=== PATIENT | female | born 1950 | race Caucasian/White ===

== ENCOUNTER 2017-04-01 10:09 | Outpatient (CLI) | payer MEDICARE, OTHER | END 2017-04-01 10:10 | disposition home or self-care (01) | LOC: BICMAMMO 10:09 | PROVIDERS: ATTEND Internal Medicine | DX: Z12.31 Encounter for screening mammogram for malignant neoplasm of breast (principal) | CPT/HCPCS: 77063; 77067 ==

== ENCOUNTER 2018-04-07 10:57 | Outpatient (CLI) | payer MEDICARE, OTHER | END 2018-04-07 10:58 | disposition home or self-care (01) | LOC: BICMAMMO 10:57 | PROVIDERS: ATTEND Internal Medicine | DX: Z12.31 Encounter for screening mammogram for malignant neoplasm of breast (principal) | CPT/HCPCS: 77063; 77067 ==

== ENCOUNTER 2019-04-08 11:33 | Outpatient (CLI) | payer MEDICARE, OTHER ==
--- NOTE | 2019-04-08 12:51 | MMO ---
Bilateral MAMMO Bilat Screen [facility]. CLINICAL HISTORY: Patient is 69 years old and is seen for screening. The patient has no family history of breast cancer. The patient has no personal history of cancer. The patient has a history of bilateral Breast reduction in 1997 - benign and bilateral Cyst Aspiration in 1995 - benign. VIEWS: The views performed were: bilateral craniocaudal with tomosynthesis and bilateral mediolateral oblique with tomosynthesis. FILMS COMPARED: The present examination has been compared to prior imaging studies performed at [facility] on 02/24/2015, 03/07/2016, 04/01/2017 and 04/07/2018. This study has been interpreted with the assistance of computer-aided detection. MAMMOGRAM FINDINGS: There are scattered fibroglandular densities. Finding 1: There are stable benign appearing calcifications seen in both breasts. Nodularity is stable. Finding 2: There is a biopsy clip seen in the right breast. There are no suspicious masses, suspicious calcifications, or new areas of architectural distortion. IMPRESSION: THERE IS NO MAMMOGRAPHIC EVIDENCE OF MALIGNANCY. A ROUTINE FOLLOW-UP MAMMOGRAM IN 1 YEAR IS RECOMMENDED. THE RESULTS OF THIS EXAM WERE SENT TO THE PATIENT. ACR BI-RADS Category 2 - Benign finding MAMMOGRAPHY NOTE: 1. A negative mammogram report should not delay a biopsy if a dominant of clinically suspicious mass is present. 2. Approximately 10% to 15% of breast cancers are not detected by mammography. 3. Adenosis and dense breasts may obscure an underlying neoplasm. Reported by: MIAH JUAREZ MD Electonically Signed: [id number]
== END 2019-04-08 11:34 | disposition home or self-care (01) ==
LOC: BICMAMMO 11:33
PROVIDERS: ATTEND Internal Medicine
DX: Z12.31 Encounter for screening mammogram for malignant neoplasm of breast (principal); Z91.89 Other specified personal risk factors, not elsewhere classified; Z98.890 Other specified postprocedural states
CPT/HCPCS: 77063; 77067

== ENCOUNTER 2020-11-29 12:32 | Outpatient (CLI) | payer MEDICARE, OTHER | END 2020-11-29 12:33 | disposition home or self-care (01) | LOC: BICMAMMO 12:32 | PROVIDERS: ATTEND Internal Medicine | DX: Z12.31 Encounter for screening mammogram for malignant neoplasm of breast (principal); N63.24 Unspecified lump in the left breast, lower inner quadrant; Z98.890 Other specified postprocedural states | CPT/HCPCS: 77063; 77067 ==

== ENCOUNTER 2020-12-01 10:37 | Outpatient (CLI) | payer MEDICARE, OTHER | END 2020-12-01 10:38 | disposition home or self-care (01) | LOC: BICULT 10:37 | PROVIDERS: ATTEND Internal Medicine | DX: R92.8 Other abnormal and inconclusive findings on diagnostic imaging of breast (principal) ==

== ENCOUNTER → 2020-12-04 | Day surgery (SDC) | payer MEDICARE, OTHER | LOC: BICULT 10:38 | PROVIDERS: ATTEND Internal Medicine | PROC: 0H9U3ZX Drainage of Left Breast, Percutaneous Approach, Diagnostic (ICD-10-PCS; principal; 2020-12-04) | DX: C50.312 Malignant neoplasm of lower-inner quadrant of left female breast (principal); Z91.040 Latex allergy status | CPT/HCPCS: 19083; 88305; 88341; 88342 ==

== ENCOUNTER 2020-12-15 13:16 | Outpatient (CLI) | payer MEDICARE, OTHER ==
[2020-12-15 14:18] LABS: #Basophils 0.1 10x3/uL (0.0-0.2); #Eosinphils 0.4 10x3/uL (0.0-0.5); #Monocytes 0.8 10x3/uL (0.0-1.1); %Basophils 0.9 % (0.0-2.0); %Lymphocytes 35.4 % (18.0-47.0); %Monocytes 9.3 % (0.0-10.0); %Neutrophils 49.3 % (40.0-75.0); Hemoglobin 13.1 g/dL (12.0-15.5); Mean Corpuscular HGB CONC 33.7 g/dL (32.0-36.0); Mean Corpuscular Hemoglobin 30.6 pg (27.0-33.0); Mean Corpuscular Volume 90.9 fl (81.6-98.3); Mean Platelet Volume 11.4 fl (7.4-10.4); Platelet Count 261 10x3/uL (150-450); RBC Distribution Width 12.1 % (11.5-14.5); Red Blood Cell (RBC) Count 4.28 10x6/uL (3.90-5.03); White Blood Cell (WBC) Count 8.1 10x3/uL (3.5-10.5)
[2020-12-15 17:30] LABS: ALT (SGPT) 21 U/L (8-55); AST (SGOT) 17 U/L (5-34); Albumin 4.6 g/dL (3.4-4.8); Alkaline Phosphatase 87 U/L (40-110); Anion Gap 17 mmol/L (10-20); BUN (Urea Nitrogen) 12 mg/dL (9.8-20.1); Bilirubin, Direct 0.1 mg/dL (0.1-0.3); Bilirubin, Total 0.4 mg/dL (0.2-1.2); Calc. Creatinine Clearance 0 mL/min (70-130); Calcium 10.1 mg/dL (7.8-10.44); Carbon Dioxide 23 mmol/L (23-31); Chloride 105 mmol/L (98-107); Globulin 2.4 g/dL (2.4-3.5); Glucose 86 mg/dL (80-115); Potassium 4.4 mmol/L (3.5-5.1); Sodium 141 mmol/L (136-145)
[2020-12-16 00:37] LABS: SARS-CoV-2 PCR by NAA Not Detected (NotDetected)
== END 2020-12-15 13:17 | disposition home or self-care (01) ==
LOC: LABBT 13:16
PROVIDERS: ATTEND Surgery
DX: Z01.818 Encounter for other preprocedural examination (principal); C50.912 Malignant neoplasm of unspecified site of left female breast; Z20.822 Contact with and (suspected) exposure to COVID-19
CPT/HCPCS: 80053; 80076; 85025; 93005; U0003; U0005; 93010

== ENCOUNTER 2020-12-20 07:05 | Day surgery (SDC) | payer MEDICARE, OTHER ==
[2020-12-19 12:54] VITALS: BMI 23.7
[2020-12-20] MEDS ORDERED: Glycopyrrolate 0.2 MG/ML 5 ML SYRINGE ONE (12:07)
[2020-12-20] MEDS ORDERED: Lidocaine 1% PF 5 ML VIAL ONE (12:07)
[2020-12-20] MEDS ORDERED: Esmolol 100 MG/10 ML VIAL ONE (12:07)
[2020-12-20] MEDS ORDERED: Ondansetron PF 4 MG/2 ML Vial ONE (12:07)
[2020-12-20] MEDS ORDERED: PROPOFOL 200 MG/20 ML VIAL ONE (12:07)
[2020-12-20] MEDS ORDERED: Dexamethasone 20 MG/5 ML VIAL ONE (12:07)
[2020-12-20] MEDS ORDERED: Ketorolac Tromethamine 30 MG/ML VIAL ONE (12:07)
== END 2020-12-20 15:28 | disposition home or self-care (01) ==
LOC: MAMMO 07:05
PROVIDERS: ATTEND Surgery
PROC: 0HBU0ZZ Excision of Left Breast, Open Approach (ICD-10-PCS; principal; 2020-12-20)
PROC: 07B60ZX Excision of Left Axillary Lymphatic, Open Approach, Diagnostic (ICD-10-PCS; 2020-12-20)
DX: C50.312 Malignant neoplasm of lower-inner quadrant of left female breast (principal); N60.92 Unspecified benign mammary dysplasia of left breast; N60.22 Fibroadenosis of left breast; M19.90 Unspecified osteoarthritis, unspecified site; G89.29 Other chronic pain; Z17.0 Estrogen receptor positive status [ER+]; Z87.891 Personal history of nicotine dependence; Z79.899 Other long term (current) drug therapy; Z88.5 Allergy status to narcotic agent; Z91.040 Latex allergy status
CPT/HCPCS: 19281; 19301; 38525; 38900; 76098; 78195; A9541; 88307; 88313; 88342; J1100; J1885; J2405; J2704

== ENCOUNTER 2021-01-10 09:40 | Outpatient (CLI) | payer MEDICARE, OTHER | END 2021-01-10 09:41 | disposition home or self-care (01) | LOC: BICMAMMO 09:40 | PROVIDERS: ATTEND Internal Medicine Hematology & Oncology | DX: Z13.820 Encounter for screening for osteoporosis (principal); Z78.0 Asymptomatic menopausal state; M85.89 Other specified disorders of bone density and structure, multiple sites | CPT/HCPCS: 77080 ==

== ENCOUNTER 2021-03-05 11:16 | Outpatient (CLI) | payer MEDICARE, OTHER | END 2021-03-05 11:17 | disposition home or self-care (01) | LOC: BICRAD 11:16 | PROVIDERS: ATTEND Internal Medicine Hematology & Oncology | DX: R07.9 Chest pain, unspecified (principal); C50.312 Malignant neoplasm of lower-inner quadrant of left female breast | CPT/HCPCS: 71046 ==

== ENCOUNTER 2021-10-03 12:28 | Outpatient (CLI) | payer MEDICARE, OTHER | END 2021-10-03 12:29 | disposition home or self-care (01) | LOC: BICCT 12:28 | PROVIDERS: ATTEND Internal Medicine Hematology & Oncology | DX: Z12.2 Encounter for screening for malignant neoplasm of respiratory organs (principal); F17.210 Nicotine dependence, cigarettes, uncomplicated | CPT/HCPCS: 71271 ==

== ENCOUNTER 2021-12-21 10:07 | Outpatient (CLI) | payer MEDICARE, OTHER | END 2021-12-21 10:08 | disposition home or self-care (01) | LOC: BICMAMMO 10:07 | PROVIDERS: ATTEND Internal Medicine Hematology & Oncology | DX: Z08 Encounter for follow-up examination after completed treatment for malignant neoplasm (principal); Z85.3 Personal history of malignant neoplasm of breast | CPT/HCPCS: 77066; G0279 ==

== ENCOUNTER 2022-02-21 13:42 | Outpatient (CLI) | payer MEDICARE, OTHER | END 2022-02-21 13:43 | disposition home or self-care (01) | LOC: BICMAMMO 13:42 | PROVIDERS: ATTEND Nurse Practitioner Family | DX: M85.89 Other specified disorders of bone density and structure, multiple sites (principal); C50.312 Malignant neoplasm of lower-inner quadrant of left female breast; F17.210 Nicotine dependence, cigarettes, uncomplicated; T38.6X5A Adverse effect of antigonadotrophins, antiestrogens, antiandrogens, not elsewhere classified, initial encounter | CPT/HCPCS: 77080 ==

== ENCOUNTER 2022-12-24 13:09 | Outpatient (CLI) | payer MEDICARE, OTHER | END 2022-12-24 13:10 | disposition home or self-care (01) | LOC: BICMAMMO 13:09 | PROVIDERS: ATTEND Internal Medicine Hematology & Oncology | DX: Z08 Encounter for follow-up examination after completed treatment for malignant neoplasm (principal); Z85.3 Personal history of malignant neoplasm of breast | CPT/HCPCS: 77066; G0279 ==

== ENCOUNTER 2023-01-22 10:57 | Outpatient (CLI) | payer MEDICARE, OTHER | END 2023-01-22 10:58 | disposition home or self-care (01) | LOC: BICCT 10:57 | PROVIDERS: ATTEND Nurse Practitioner Family | DX: Z12.2 Encounter for screening for malignant neoplasm of respiratory organs (principal); Z87.891 Personal history of nicotine dependence | CPT/HCPCS: 71271 ==

== ENCOUNTER 2023-12-26 13:34 | Outpatient (CLI) | payer MEDICARE, OTHER | END 2023-12-26 13:35 | disposition home or self-care (01) | LOC: BICMAMMO 13:34 | PROVIDERS: ATTEND Internal Medicine Hematology & Oncology | DX: Z08 Encounter for follow-up examination after completed treatment for malignant neoplasm (principal); Z85.3 Personal history of malignant neoplasm of breast; M85.80 Other specified disorders of bone density and structure, unspecified site; F17.210 Nicotine dependence, cigarettes, uncomplicated; I89.0 Lymphedema, not elsewhere classified; T38.6X5A Adverse effect of antigonadotrophins, antiestrogens, antiandrogens, not elsewhere classified, initial encounter | CPT/HCPCS: 77066; G0279 ==

== ENCOUNTER 2024-01-26 10:45 | Outpatient (CLI) | payer MEDICARE, OTHER | END 2024-01-26 10:46 | disposition home or self-care (01) | LOC: BICCT 10:45 | PROVIDERS: ATTEND Internal Medicine Hematology & Oncology | DX: Z12.2 Encounter for screening for malignant neoplasm of respiratory organs (principal); F17.210 Nicotine dependence, cigarettes, uncomplicated | CPT/HCPCS: 71271 ==

== ENCOUNTER 2024-11-12 10:20 | Outpatient (CLI) | payer MEDICARE, OTHER | END 2024-11-12 10:21 | disposition home or self-care (01) | LOC: BICCT 10:20 | PROVIDERS: ATTEND Nurse Practitioner Family | DX: Z12.2 Encounter for screening for malignant neoplasm of respiratory organs (principal); Z87.891 Personal history of nicotine dependence; I77.819 Aortic ectasia, unspecified site | CPT/HCPCS: 71271 ==